=== PATIENT | female | born 1995 | race Caucasian/White ===

== ENCOUNTER 2021-02-14 23:48 | Inpatient (IN) ==
[2021-02-15] MEDS ORDERED: Isovue-370 500 ML BOTTLE IVP ONE (00:16)
[2021-02-15] MEDS ORDERED: Ondansetron 4 MG/2 ML VIAL IVP ONE (00:50)
[2021-02-15 01:23] LABS: Basophils % 0.2 %; Eosinophils % 0.9 %; Hematocrit 40.6 % (35.3-44.9); Hemoglobin 13.8 g/dL (11.5-15.4); Immature Granulocytes % 0.7 % (0-4); Lymphocytes # 1.1 K/mcL (0.6-4.6); Lymphocytes % 23.9 %; Mean Corpuscular Hemoglobin 27.4 pg (28.0-33.3); Mean Corpuscular Volume 80.7 fL (83.0-100.0); Mean Platelet Volume 11.4 fL (9.4-12.4); Monocytes # 0.3 K/mcL (0.0-1.3); Monocytes % 7.4 %; Neutrophils # 3.1 K/mcL (1.6-8.9); Platelet Count 159 K/mcL (140-400); Red Blood Count 5.03 M/mcL (3.82-4.97); Red Cell Distribution Width 13.2 % (11.5-14.5); Segmented Neutrophils % 66.9 %; White Blood Count 4.6 K/mcL (4.3-11.1)
[2021-02-15 01:40] LABS: BUN/Creatinine Ratio 16 (6-26); Bacteria,Urine Few per hpf (None-Few); Bilirubin,Urine Negative (Negative); Blood Urea Nitrogen 12 mg/dL (6-20); Blood,Urine Negative (Negative); Calcium 8.8 mg/dL (8.6-10.3); Carbon Dioxide 26 mEq/L (23-29); Chloride 106 mEq/L (98-107); Clarity,Urine Turbid (Clear); Color,Urine Yellow (Yellow); Glucose 104 mg/dL (70-105); Glucose,Urine (UA) Normal (Normal); Ketones,Urine 10 mg/dL (Negative); Leukocyte Esterase,Urine Negative (Negative); Mucus,Urine Few per lpf (None-Few); Nitrite,Urine Negative (Negative); Osmolality,Calculated 288 (280-300); PH,Urine 6.5 pH Units (5.0-8.0); Potassium 3.5 mEq/L (3.5-5.1); Protein,Urine 30 mg/dL (Neg-Trace); Sodium 139 mEq/L (136-145); Specific Gravity,Urine > 1.030 (1.010-1.025); Squamous Epithelial Cell,Urine Moderate per hpf (None-Few); eGFR For African Americans > 60 (> 60); eGFR For Non-African Americans > 60 (> 60)
[2021-02-15] MEDS ORDERED: 0.9 % Sodium Chloride 500 ML IVC ONE (01:43)
[2021-02-15] MEDS ORDERED: Melatonin 3 MG TABLET PO PRN (05:12)
[2021-02-15] MEDS ORDERED: Naloxone 0.4 MG/ML INJ IVP PRN (05:12)
[2021-02-15] MEDS ORDERED: Ringers Solution, Lactated 500 ML IVC SCH (06:45)
[2021-02-15] MEDS: Acetaminophen 325 MG TABLET PO PRN ×2 (07:00→18:18)
[2021-02-15] MEDS: *HR* Enoxaparin 40 MG/0.4 ML SYRINGE SQ SCH (07:01)
[2021-02-15] MEDS: *HR* HYDROcodone/Acet 5/325 mg TABLET PO PRN (12:11)
[2021-02-15] MEDS: diazePAM 5 MG TABLET PO PRN (15:15)
[2021-02-16] MEDS: *HR* Enoxaparin 40 MG/0.4 ML SYRINGE SQ SCH (05:57)
[2021-02-16] MEDS ORDERED: Dexamethasone Sodium Phos/PF 10 MG/ML VIAL IVP SCH (09:00)
[2021-02-16] MEDS: *HR* HYDROcodone/Acet 5/325 mg TABLET PO PRN (09:32)
[2021-02-16] MEDS: BuPROPion XL (24 HR) 150 MG TABLET PO SCH (09:33)
[2021-02-16 11:35] LABS: Basophils % 0.4 %; Eosinophils % 0.1 %; Hemoglobin 13.9 g/dL (11.5-15.4); Immature Granulocytes % 0.8 % (0-4); Lymphocytes # 1.3 K/mcL (0.6-4.6); Lymphocytes % 18.1 %; Mean Corpuscular HGB Conc 33.1 g/dL (31.6-35.5); Mean Corpuscular Hemoglobin 26.9 pg (28.0-33.3); Mean Corpuscular Volume 81.4 fL (83.0-100.0); Mean Platelet Volume 10.6 fL (9.4-12.4); Monocytes # 0.5 K/mcL (0.0-1.3); Monocytes % 6.3 %; Neutrophils # 5.4 K/mcL (1.6-8.9); Platelet Count 212 K/mcL (140-400); Red Blood Count 5.16 M/mcL (3.82-4.97); Red Cell Distribution Width 13.2 % (11.5-14.5); Segmented Neutrophils % 74.3 %; White Blood Count 7.3 K/mcL (4.3-11.1)
[2021-02-16 11:55] LABS: BUN/Creatinine Ratio 16 (6-26); Blood Urea Nitrogen 14 mg/dL (6-20); C-Reactive Protein 20 mg/L (Less than 10); Calcium 8.9 mg/dL (8.6-10.3); Carbon Dioxide 26 mEq/L (23-29); Chloride 106 mEq/L (98-107); Glucose 110 mg/dL (70-105); Lactate Dehydrogenase 268 Units/L (140-271); Osmolality,Calculated 291 (280-300); Potassium 3.9 mEq/L (3.5-5.1); Sodium 140 mEq/L (136-145); eGFR For African Americans > 60 (> 60); eGFR For Non-African Americans > 60 (> 60)
[2021-02-16 12:13] LABS: Ferritin 306 ng/mL (10-120)
[2021-02-16] MEDS: diazePAM 5 MG TABLET PO PRN (20:45)
[2021-02-17] MEDS: *HR* Enoxaparin 40 MG/0.4 ML SYRINGE SQ SCH (05:00)
[2021-02-17 07:12] VITALS: BP 106/73; PULSE 76; TEMP 98.3
[2021-02-17] MEDS: BuPROPion XL (24 HR) 150 MG TABLET PO SCH (09:11)
[2021-02-17 09:43] VITALS: O2SAT 96
== END 2021-02-17 12:47 | disposition home or self-care (01) | DRG 137 ==
LOC: 3ANU 23:48 → EMEROOARM 23:48 → 3ANU 02-15 06:00 → SUATTDRO 02-16 10:55
PROVIDERS: ADMIT Family Medicine; ATTEND Internal Medicine